=== PATIENT | female | born 2000 | race American Indian/Alaskan Native ===

== ENCOUNTER 2020-10-03 23:09 | Emergency (ER) | payer SELFPAY ==
[2020-10-04 00:21] VITALS: BP 129/75
[2020-10-04] MEDS ORDERED: ACETAMINOPHEN 325 MG TAB ONE (00:21)
[2020-10-04] MEDS ORDERED: IBUPROFEN 600 MG TAB PO ONE ×2 (00:21)
[2020-10-04] MEDS ORDERED: ACETAMINOPHEN 325 MG TAB PO ONE (00:22)
--- NOTE | 2020-10-04 01:07 | XRay Report ---
Left ankle-3 views Left foot-3 views INDICATION: Lt foot injury. COMPARISON: None. IMPRESSION: No acute osseous abnormality in the ankle or foot. Mild soft tissue swelling about the anterior aspect of the ankle. Normal alignment. No significant DJD. Signer Name: Akbar Sam MD Signed: 10/04/2020 1:03 AM Workstation Name: [email or web address]
--- NOTE | 2020-10-04 01:07 | XRay Report ---
Left ankle-3 views Left foot-3 views INDICATION: Lt foot injury. COMPARISON: None. IMPRESSION: No acute osseous abnormality in the ankle or foot. Mild soft tissue swelling about the anterior aspect of the ankle. Normal alignment. No significant DJD. Signer Name: Akbar Sam MD Signed: 10/04/2020 1:03 AM Workstation Name: [id number]
--- NOTE | 2020-10-04 01:27 | Emergency Department Report ---
ED Fall HPI - General Chief Complaint: Extremity Injury, Lower Stated Complaint: LT FOOT INJURY Source: patient Mode of arrival: Ambulatory - History of Present Illness Initial Comments: Patient is a nulliparous 20-year-old -[place] female with a history of asthma presents to the ED with complaint of acute onset persistent severe left foot and ankle pain and swelling after she tripped down the stairs and twisted her left ankle and foot about 3 hours ago. Patient states that she is unable to bear weight on the left foot because of worsening pain. Patient denies head or neck injuries, syncope, nausea and vomiting, dizziness, seizures, back pain, hip pain, chest pain or shortness of breath, abdominal pain, numbness and tingling or weakness of upper and lower extremities bilaterally. MD Complaint: fall (left foot pain), other (left foot and ankle pain, s/p fall down the stairs) -: Sudden, hour(s) (3) Fall From: standing, down stairs (#) (3) When Fall Occurred: 1-3 hours [employer] Fall Witnessed: yes, by family Place Fall Occurred: home Loss of Consciousness: none Prolonged Down Time?: no Symptoms Prior to Fall: none Location: other (left foot and ankle sprain) Location - Extremities: Left: Ankle (left ankle and foot), Foot (left ankle and foot) Severity: severe Severity scale (0 -10): 8 Quality: sharp Context: tripped/slipped Associated Symptoms: denies. denies: headache, neck pain, numbness, weakness, shortness of breath, abdominal pain, hematuria, unable to walk, lightheaded, vertigo, confusion, other - Related Data Home Medications Medication Instructions Recorded Confirmed Last Taken Albuterol Sulfate [Ventolin HFA] 2 puff IH Q4H PRN 02/16/13 02/16/13 02/14/13 2 puffs Guaifenesin/Phenylephrine HCl 118 ml PO 02/16/13 02/16/13 02/15/13 21:00 [Mucinex Cold Liquid] 10 ml diphenhydrAMINE [Benadryl] 50 mg PO 02/16/13 02/16/13 02/13/13 50 mg Previous Rx's Medication Instructions Recorded Last Taken Type Clindamycin [Clindamycin CAP] 300 mg PO Q6H #40 capsule 03/24/14 Unknown Rx Loratadine (Nf) [Claritin] 10 mg PO DAILY #30 tablet 03/24/14 Unknown Rx predniSONE [Deltasone] 20 mg PO QDAY #5 tab 03/24/14 Unknown Rx Ibuprofen [Motrin] 400 mg PO Q8H PRN #20 tablet 09/14/14 Unknown Rx Ibuprofen [Motrin] 600 mg PO Q8H PRN #30 tablet 10/04/20 Unknown Rx traMADoL [Ultram] 50 mg PO Q6HR PRN #12 tablet 10/04/20 Unknown Rx Allergies Allergy/AdvReac Type Severity Reaction Status Date / Time Penicillins Allergy Severe Hives Verified 02/16/13 08:36 amoxicillin [Amoxicillin] Allergy Hives Verified 02/16/13 08:36 ED Review of Systems ROS: Stated complaint: LT FOOT INJURY Other details as noted in HPI Constitutional: denies: chills, fever Eyes: denies: eye pain, eye discharge, vision change ENT: denies: ear pain, throat pain Respiratory: denies: cough, shortness of breath, wheezing Cardiovascular: denies: chest pain, palpitations Endocrine: no symptoms reported Gastrointestinal: denies: abdominal pain, nausea, diarrhea Genitourinary: denies: urgency, dysuria, discharge Musculoskeletal: joint swelling (left ankle and foot), arthralgia (left ankle and foot pain). denies: back pain Skin: denies: rash, lesions Neurological: denies: headache, weakness, paresthesias Psychiatric: denies: anxiety, depression Hematological/Lymphatic: denies: easy bleeding, easy bruising ED Past Medical Hx - Past Medical History Previous Medical History?: Yes Hx Asthma: Yes - Surgical History Past Surgical History?: Yes Additional Surgical History: Rt ankle - Social History Smoking Status: Never Smoker Substance Use Type: None - Medications Home Medications: Home Medications Medication Instructions Recorded Confirmed Last Taken Type Albuterol Sulfate [Ventolin HFA] 2 puff IH Q4H PRN 02/16/13 02/16/13 02/14/13 History 2 puffs Guaifenesin/Phenylephrine HCl 118 ml PO 02/16/13 02/16/13 02/15/13 21:00 History [Mucinex Cold Liquid] 10 ml diphenhydrAMINE [Benadryl] 50 mg PO 02/16/13 02/16/13 02/13/13 History 50 mg Clindamycin [Clindamycin CAP] 300 mg PO Q6H #40 capsule 03/24/14 Unknown Rx Loratadine (Nf) [Claritin] 10 mg PO DAILY #30 tablet 03/24/14 Unknown Rx predniSONE [Deltasone] 20 mg PO QDAY #5 tab 03/24/14 Unknown Rx Ibuprofen [Motrin] 400 mg PO Q8H PRN #20 tablet 09/14/14 Unknown Rx Ibuprofen [Motrin] 600 mg PO Q8H PRN #30 tablet 10/04/20 Unknown Rx traMADoL [Ultram] 50 mg PO Q6HR PRN #12 tablet 10/04/20 Unknown Rx ED Physical Exam - General Limitations: No Limitations General appearance: alert, in no apparent distress - Head Head exam: Present: atraumatic, normocephalic, normal inspection - Eye Eye exam: Present: normal appearance, PERRL, EOMI Pupils: Present: normal accommodation - ENT ENT exam: Present: normal exam, normal orophraynx, mucous membranes moist, TM's normal bilaterally, normal external ear exam - Neck Neck exam: Present: normal inspection, full ROM - Respiratory Respiratory exam: Present: normal lung sounds bilaterally. Absent: respiratory distress, wheezes, rales, rhonchi, chest wall tenderness, accessory muscle use, decreased breath sounds, prolonged expiratory - Cardiovascular Cardiovascular Exam: Present: regular rate, normal rhythm, normal heart sounds. Absent: systolic murmur, diastolic murmur, rubs, gallop - GI/Abdominal GI/Abdominal exam: Present: soft, normal bowel sounds. Absent: tenderness, guarding, hyperactive bowel sounds, hypoactive bowel sounds, organomegaly - Extremities Exam Extremities exam: Present: normal inspection, tenderness, normal capillary refill, joint swelling (Mild swelling of left ankle and foot). Absent: full ROM (Limited range of motion of left foot and ankle due to pain), calf tenderness - Back Exam Back exam: Present: normal inspection, full ROM. Absent: tenderness, CVA tenderness (R), CVA tenderness (L), muscle spasm, paraspinal tenderness, vertebral tenderness - Neurological Exam Neurological exam: Present: alert, oriented X3, CN II-XII intact, normal gait, reflexes normal - Psychiatric Psychiatric exam: Present: normal affect, normal mood - Skin Skin exam: Present: warm, dry, intact, normal color. Absent: rash ED Course Vital Signs 10/04/20 00:18 Temperature 98.7 F Pulse Rate 69 Respiratory 16 Rate Blood Pressure 129/75 [Right] O2 Sat by Pulse 100 Oximetry ED Medical Decision Making - Radiology Data Radiology results: report reviewed, image reviewed [facility] [address] [place] [address] XRay Report Signed Patient: RUTHY ELIZABETH MR#: [id number] : 2000 Acct:[id number] Age/Sex: 20 / F ADM Date: 10/03/20 Loc: ED Attending Dr: Ordering Physician: DIAMANTE MCCLENDON MD Date of Service: 10/04/20 Procedure(s): XR ankle 3+V LT Accession Number(s): [id number] cc: ED MD HAKAN Fluoro Time In Minutes: Left ankle-3 views Left foot-3 views INDICATION: Lt foot injury. COMPARISON: None. IMPRESSION: No acute osseous abnormality in the ankle or foot. Mild soft tissue swelling about the anterior aspect of the ankle. Normal alignment. No significant DJD. Signer Name: Akbar Sam MD Signed: 10/04/2020 1:03 AM Workstation Name: [id number] Transcribed By: BEV Dictated By: Akbar Sam MD Electronically Authenticated By: Akbar Sam MD Signed Date/Time: 10/04/20102 DD/ 1 TD/TT: - Medical Decision Making This is a nulliparous 20-year-old -[place] female with a history of asthma presents to the ED with complaint of acute onset persistent severe left foot and ankle pain and swelling after she tripped down the stairs and twisted her left ankle and foot about 3 hours ago. Patient states that she is unable to bear weight on the left foot because of worsening pain. In the ED, patient is alert and oriented x3 and is not in any distress. Patient was treated for pain in the ED and left foot and ankle x-rays showed no acute fractures or subluxations. Patient's left foot and ankle was splinted with Soto wrap and postop shoes. On reevaluation, patient's pain is well controlled medications. Patient already has crutches that she had used come to the ED. Patient was advised to follow-up with her primary care physician in 3 to 5 days for reevaluation or return to the ED immediately if symptoms get worse. - Differential Diagnosis ankle fracture; foot sprain; foot fracture; foot contusion Critical care attestation.: If time is entered above; I have spent that time in minutes in the direct care of this critically ill patient, excluding procedure time. ED Disposition Clinical Impression: Severe sprain of left ankle Qualifiers: Encounter type: initial encounter Qualified Code(s): S93.402A - Sprain of unspecified ligament of left ankle, initial encounter Contusion of left foot including toes Qualifiers: Encounter type: initial encounter Qualified Code(s): S90.32XA - Contusion of left foot, initial encounter; S90.122A - Contusion of left lesser toe(s) without damage to nail, initial encounter Sprain of foot, left Qualifiers: Encounter type: initial encounter Qualified Code(s): S93.602A - Unspecified sprain of left foot, initial encounter Disposition: TO HOME OR SELFCARE Is pt being admited?: No Does the pt Need Aspirin: No Condition: Stable Instructions: Ankle Sprain, [id number], Crush Injury of the Foot, [id number], Foot Contusion, [id number] Additional Instructions: Left foot and ankle x-rays showed no acute fractures or subluxations. The injuries musculoskeletal muscle strain or sprain of left ankle and foot. Therefore take pain medications with food, drink plenty of fluids and follow-up with your primary care physician in 3 to 5 days for reevaluation or return to the ED immediately if symptoms get worse. Prescriptions: Ibuprofen [Motrin] 600 mg PO Q8H PRN #30 tablet PRN Reason: Pain traMADoL [Ultram] 50 mg PO Q6HR PRN #12 tablet PRN Reason: Pain Referrals: [facility] [Provider Group] - 3-5 Days Time of Disposition: : Print Language: UZBEK
== END 2020-10-04 02:30 | disposition home or self-care (01) ==
LOC: ED 23:09
DX: S93.402A Sprain of unspecified ligament of left ankle, initial encounter (principal); S90.32XA Contusion of left foot, initial encounter; S93.602A Unspecified sprain of left foot, initial encounter; Z79.899 Other long term (current) drug therapy; Z88.0 Allergy status to penicillin; Z88.1 Allergy status to other antibiotic agents; W10.2XXA Fall (on)(from) incline, initial encounter; Y93.89 Activity, other specified; Y92.89 Other specified places as the place of occurrence of the external cause; Y99.8 Other external cause status
CPT/HCPCS: 99283

== ENCOUNTER 2021-04-07 13:39 | Emergency (ER) | payer OTHER ==
[2021-04-07] MEDS ORDERED: KETOROLAC 30 MG/1 ML INJ IV ONE (15:38)
[2021-04-07] MEDS ORDERED: dexAMETHasone 20 MG/5 ML VIAL IV ONE (15:38)
[2021-04-07] MEDS ORDERED: SODIUM CHLORIDE 0.9% 1000 ML 1,000 ML IV ONE (15:38)
--- NOTE | 2021-04-07 15:39 | Emergency Department Report ---
ED ENT HPI - General Chief complaint: Sore Throat Stated complaint: SORE THROAT Time Seen by Provider: 04/07/21 15:07 Source: patient Mode of arrival: Ambulatory Limitations: No Limitations - History of Present Illness Initial comments: 20-year-old female presents to the ER today with complaints of severe throat throat. Patient states that symptoms started yesterday. Patient reports severe pain with swallowing. She states that she has been doing a lot of spitting because it hurts to swallow and she has been having difficulty opening her mouth because of pain. Patient states that she has been having a fever of up to 100. She has been taking Tylenol ibuprofen but is been taking Benadryl. She denies any runny nose, nasal congestion or cough. She denies any difficulty breathing. She denies any known ill contacts or recent travel. MD complaint: sore throat, difficulty swallowing -: days(s) (1) - Related Data Home Medications Medication Instructions Recorded Confirmed Last Taken Albuterol Sulfate [Ventolin HFA] 2 puff IH Q4H PRN 02/16/13 02/16/13 02/14/13 2 puffs Guaifenesin/Phenylephrine HCl 118 ml PO 02/16/13 02/16/13 02/15/13 21:00 [Mucinex Cold Liquid] 10 ml diphenhydrAMINE [Benadryl] 50 mg PO 02/16/13 02/16/13 02/13/13 50 mg Previous Rx's Medication Instructions Recorded Last Taken Type Loratadine (Nf) [Claritin] 10 mg PO DAILY #30 tablet 03/24/14 Unknown Rx Clindamycin [Clindamycin CAP] 300 mg PO Q6H #40 capsule 04/07/21 Unknown Rx Ketorolac [Toradol] 10 mg PO Q4HR PRN #20 tablet 04/07/21 Unknown Rx methylPREDNISolone [Medrol 4MG 4 mg PO DAILY #1 tab.ds.pk 04/07/21 Unknown Rx DOSEPAK (21 tabs)] Allergies Allergy/AdvReac Type Severity Reaction Status Date / Time Penicillins Allergy Severe Hives Verified 02/16/13 08:36 amoxicillin [Amoxicillin] Allergy Hives Verified 02/16/13 08:36 ED Dental HPI - General Chief complaint: Sore Throat Stated complaint: SORE THROAT Time Seen by Provider: 04/07/21 15:07 Source: patient Mode of arrival: Ambulatory Limitations: No Limitations - Related Data Home Medications Medication Instructions Recorded Confirmed Last Taken Albuterol Sulfate [Ventolin HFA] 2 puff IH Q4H PRN 02/16/13 02/16/13 02/14/13 2 puffs Guaifenesin/Phenylephrine HCl 118 ml PO 02/16/13 02/16/13 02/15/13 21:00 [Mucinex Cold Liquid] 10 ml diphenhydrAMINE [Benadryl] 50 mg PO 02/16/13 02/16/13 02/13/13 50 mg Previous Rx's Medication Instructions Recorded Last Taken Type Loratadine (Nf) [Claritin] 10 mg PO DAILY #30 tablet 03/24/14 Unknown Rx Clindamycin [Clindamycin CAP] 300 mg PO Q6H #40 capsule 04/07/21 Unknown Rx Ketorolac [Toradol] 10 mg PO Q4HR PRN #20 tablet 04/07/21 Unknown Rx methylPREDNISolone [Medrol 4MG 4 mg PO DAILY #1 tab.ds.pk 04/07/21 Unknown Rx DOSEPAK (21 tabs)] Allergies Allergy/AdvReac Type Severity Reaction Status Date / Time Penicillins Allergy Severe Hives Verified 02/16/13 08:36 amoxicillin [Amoxicillin] Allergy Hives Verified 02/16/13 08:36 ED Review of Systems ROS: Stated complaint: SORE THROAT Other details as noted in HPI Comment: All other systems reviewed and negative Constitutional: denies: chills, fever Eyes: denies: eye pain, eye discharge, vision change ENT: throat pain. denies: ear pain, dental pain, hearing loss, epistaxis Respiratory: denies: cough, shortness of breath, wheezing Cardiovascular: denies: chest pain, palpitations, dyspnea on exertion, edema, syncope, paroxysmal nocturnal dyspnea Genitourinary: denies: urgency, dysuria, frequency, hematuria, discharge, abnormal menses, dyspareunia Musculoskeletal: denies: back pain, joint swelling, arthralgia Skin: denies: rash, lesions, change in color, change in hair/nails, pruritus Neurological: denies: headache, weakness, numbness, paresthesias, confusion, abnormal gait, vertigo Psychiatric: denies: anxiety, depression, auditory hallucinations, visual hallucinations, homicidal thoughts, suicidal thoughts ED Past Medical Hx - Past Medical History Previous Medical History?: Yes Hx Asthma: Yes - Surgical History Past Surgical History?: Yes Additional Surgical History: Rt ankle - Social History Smoking Status: Never Smoker Substance Use Type: None - Medications Home Medications: Home Medications Medication Instructions Recorded Confirmed Last Taken Type Albuterol Sulfate [Ventolin HFA] 2 puff IH Q4H PRN 02/16/13 02/16/13 02/14/13 History 2 puffs Guaifenesin/Phenylephrine HCl 118 ml PO 02/16/13 02/16/13 02/15/13 21:00 History [Mucinex Cold Liquid] 10 ml diphenhydrAMINE [Benadryl] 50 mg PO 02/16/13 02/16/13 02/13/13 History 50 mg Loratadine (Nf) [Claritin] 10 mg PO DAILY #30 tablet 03/24/14 Unknown Rx Clindamycin [Clindamycin CAP] 300 mg PO Q6H #40 capsule 04/07/21 Unknown Rx Ketorolac [Toradol] 10 mg PO Q4HR PRN #20 tablet 04/07/21 Unknown Rx methylPREDNISolone [Medrol 4MG 4 mg PO DAILY #1 tab.ds.pk 04/07/21 Unknown Rx DOSEPAK (21 tabs)] ED Physical Exam - General Limitations: No Limitations General appearance: alert, in no apparent distress, other (mildly ill appearing but not toxic ) - Head Head exam: Present: atraumatic, normocephalic, normal inspection - Eye Eye exam: Present: normal appearance, PERRL, EOMI Pupils: Present: normal accommodation - ENT ENT exam: Present: mucous membranes moist - Expanded ENT Exam Expanded Mouth exam: Present: muffled voice (mild ), other (frequent spitting but no drooling ). Absent: drooling, trismus, tongue normal, tongue elevation, laceration Throat exam: Positive: tonsillar erythema, tonsillomegaly, tonsillar exudate - Neck Neck exam: Present: normal inspection, full ROM, lymphadenopathy. Absent: meningismus - Respiratory Respiratory exam: Present: normal lung sounds bilaterally. Absent: respiratory distress, wheezes, rales, rhonchi - Cardiovascular Cardiovascular Exam: Present: normal rhythm, tachycardia, normal heart sounds - Neurological Exam Neurological exam: Present: alert, oriented X3, CN II-XII intact, normal gait - Psychiatric Psychiatric exam: Present: normal affect, normal mood - Skin Skin exam: Present: intact ED Course Vital Signs 04/07/21 04/07/21 04/07/21 13:45 16:30 16:37 Temperature 100.1 F H Pulse Rate 109 H 95 H Respiratory 14 16 18 Rate Blood Pressure 138/69 116/73 O2 Sat by Pulse 99 99 Oximetry 04/07/21 17:38 Temperature 99.2 F Pulse Rate Respiratory Rate Blood Pressure O2 Sat by Pulse Oximetry ED Medical Decision Making - Medical Decision Making 1803: Patient appears to be feeling better after IV fluids and meds. She is no longer spitting in the bag, she is controlling her secretions well without any drooling. She has no stridor, and not in any respiratory distress. Her repeat vital signs with improvement of her temp and her heart rate and her blood pressure has remained stable. Patient currently is not toxic or ill-appearing. I obtained rapid strep swab myself. Rapid strep is negative but that could be related to not getting a good sample because of patient's discomfort and gag reflex. I still suspect that patient symptoms could be related to strep given that she has tonsillar swelling, and exudates on both tonsils. I do not suspect any peritonsillar abscess or Kan angina or sepsis at this time. Charlene null will be started on clindamycin since she is allergic to penicillin, she will be sent home on Medrol Dosepak and Toradol. Encourage patient to drink lots of fluid and doing a soft diet. Patient expressed understanding of all instructions and agree with plan. Patient was stable at time of discharge. Critical care attestation.: If time is entered above; I have spent that time in minutes in the direct care of this critically ill patient, excluding procedure time. ED Disposition Clinical Impression: Exudative tonsillitis Disposition: HOME / SELF CARE / HOMELESS Is pt being admited?: No Does the pt Need Aspirin: No Condition: Stable Instructions: Tonsillitis Additional Instructions: I recommend that you take the clindamycin as prescribed to completion, also take the Medrol Dosepak and the Toradol which will help with pain and inflammation. Drink lots of fluids especially cold fluids to help soothe the throat. Recommend doing a soft mushy diet. Continue to monitor your temperatures, if you develop a fever of 100.5 or higher you can take Tylenol and alternate with the Toradol. You can also use [id number] throat lozenges or sprays. Return to the ER if at any point your symptoms worsens or changes in any way. Prescriptions: Clindamycin [Clindamycin CAP] 300 mg PO Q6H #40 capsule methylPREDNISolone [Medrol 4MG DOSEPAK (21 tabs)] 4 mg PO DAILY #1 tab.ds.pk Ketorolac [Toradol] 10 mg PO Q4HR PRN #20 tablet PRN Reason: Pain Referrals: PRIMARY CARE,MD [Primary Care Provider] - 3-5 Days [facility] [Provider Group] - 3-5 Days Forms: Work/School Release Form(ED) Time of Disposition: 17:47 Print Language: TELUGU
[2021-04-07 18:17] VITALS: BP 115/63
== END 2021-04-07 18:17 | disposition home or self-care (01) ==
LOC: ED 13:39
DX: J03.90 Acute tonsillitis, unspecified (principal); R13.10 Dysphagia, unspecified; R50.9 Fever, unspecified; J45.909 Unspecified asthma, uncomplicated; Z98.890 Other specified postprocedural states; Z88.0 Allergy status to penicillin
CPT/HCPCS: 87116; 87430; 96361; 96374; 96375; 99283; J1100; J1885; J7030